=== PATIENT | male | born 2000 | race Caucasian/White ===

== ENCOUNTER 2025-05-08 18:14 | Emergency (ER) | payer MEDICAID, SELFPAY ==
[2025-05-08 18:38] VITALS: BP 149/86; PULSE 91; RESP 18; TEMP 36.6; O2SAT 98
--- NOTE | 2025-05-08 18:57 | XR_ITS ---
Examination: CT lumbar spine, without contrast. 2-D sagittal reconstructions. 2-D coronal reconstructions. 3-D reconstructions. Date and time of exam: May 08, 2025, 1922 hours INDICATION: Sudden onset lower back pain today CTDI: vol (mGy): 20.3 DLP: (mGycm): 681 Technique: Multiple 1.25 mm axial sections of the lumbar spine without intravenous contrast have been obtained. 2-D sagittal and coronal reconstructions have been obtained. 3-D reconstructions have been obtained. Low dose protocols were performed. One or more of the following dose reduction techniques were used; automated exposure control, adjustment of the mA and/or KV according to patient size, use of iterative reconstruction technique. Findings: Satisfactory line mid lumbar vertebral bodies on the lateral view. No lumbar fracture, no spondylolisthesis Mild to moderate disc narrowing L5-S1 Lumbar pedicles, laminae, transverse and posterior spinous processes intact L5-S1 3 mm central lumbar disc bulge contiguous with the left S1 nerve root L4-L5 2 mm central lumbar disc bulge L3-L4 4 mm central lumbar disc bulge L2-L3 no disc protrusion L1-L2 no disc protrusion IMPRESSION: No lumbar fracture L5-S1 3 mm central lumbar disc bulge contiguous with the left S1 nerve root L4-L5 2 mm central lumbar disc bulge L3-L4 4 mm central lumbar disc bulge As clinically warranted, MRI lumbar spine without contrast follow-up would best assess for acquired soft tissue spinal stenosis
[2025-05-08] MEDS: KETOROLAC INJ 60 MG/2 ML VIAL IM (19:29)
[2025-05-08] MEDS: HYDROcodone/APAP 5/325 TABLET 1 TAB PO (19:29)
[2025-05-08 19:41] LABS: Basophils # (Auto) 0.1 Thou/mm3 (0.0-0.2); Basophils % (Auto) 1 % (0-2.5); Eosinophils # (Auto) 0.4 Thou/mm3 (0.0-0.5); Eosinophils % (Auto) 5 % (0-10); Hematocrit 47.4 % (41.0-53.0); Hemoglobin 16.8 g/dL (13.5-16.0); Immature Granulocytes Auto 0.03 Thou/mm3 (0.00-0.00); Lymphocytes # (Auto) 1.9 Thou/mm3 (1.0-4.8); Lymphocytes % (Auto) 22 % (10-50); Mean Corpuscular HGB Conc 35.4 g/dl (31.0-37.0); Mean Corpuscular Hemoglobin 32.2 pg (25.0-35.0); Mean Corpuscular Volume 91 fL (80-100); Monocytes # (Auto) 0.9 Thou/mm3 (0.0-0.8); Monocytes % (Auto) 10 % (0-12); Neutrophils # (Auto) 5.5 Thou/mm3 (1.8-7.7); Neutrophils % (Auto) 63 % (37-80); Nucleated Red Blood Cell # 0.00 Thou/mm3 (0.00-0.00); Nucleated Red Blood Cell % 0 /100 WBC (0); Platelet Count 201 Thou/mm3 (140-440); RDW Standard Deviation 41.1 fL (35.1-43.9); Red Blood Count 5.21 Miln/mm3 (4.50-5.90); White Blood Count 8.7 Thou/mm3 (3.8-10.6)
[2025-05-08 20:03] LABS: Alanine Aminotransferase 30 U/L (10-49); Albumin, Serum 4.4 gm/dL (3.5-5.0); Albumin/Globulin Ratio 1.5 (1.2-2.2); Alkaline Phosphatase 92 U/L (46-116); Anion Gap 10 (7-16); Aspartate Amino Transferase 21 U/L (0-34); BUN/Creatinine Ratio 12 Ratio (12-20); Bilirubin,Total 1.0 mg/dL (0.3-1.2); Blood Urea Nitrogen 12 mg/dL (9-23); Calcium 9.7 mg/dL (8.3-10.6); Calcium (Corrected) 9.7 mg/dL (8.5-10.1); Carbon Dioxide 27.4 mMol/L (20.0-31.0); Chloride 104 mMol/L (98-107); Creatinine (Component) 1.0 mg/dL (0.6-1.3); Globulin 3.0 gm/dL (2.3-3.5); Glucose 98 mg/dL (74-106); Osmolality,Calculated 280 (275-295); Potassium 3.9 mMol/L (3.4-5.1); Sodium 141 mMol/L (136-145); Total Protein 7.4 gm/dL (5.7-8.2); eGFR > 60 See Note
[2025-05-08 20:10] LABS: Collection Type, Urine Clean Catch; Squamous Epithelial Cell,Urine 0 /hpf (0-5)
[2025-05-08 20:18] LABS: Bilirubin,Urine Negative (Negative); Blood,Urine Negative (Negative); Clarity,Urine Clear (Clear/Hazy); Color,Urine Yellow (Lt Yel-Yel); Glucose, Urine Negative (Negative); Ketones,Urine Negative (Negative); Leukocyte Esterase,Urine Negative (Negative); Nitrite,Urine Negative (Negative); PH,Urine 7.0 (5.0-7.0); Protein,Urine Trace (Neg - Trace); RBC,Urine < 1 /hpf (0-3); Specific Gravity,Urine 1.036 (1.001-1.035); Urobilinogen,Urine 2.0 mg/dL (0.0-1.0); WBC,Urine 1 /hpf (0-5)
--- NOTE | 2025-05-08 21:23 | PD.EDBACK ---
ED Back Injury Pain RME/HPI General Chief Complaint: Back Pain/Injury Stated Complaint: LOWER BACK PAIN 7/10, DIZZY SPELLS Time Seen by Provider: 05/08/25 18:45 Arrival date/time: 05/08/25 18:14 This is a case of 25-year-old male with no medical history came in in the emergency room due to lower back pain history of present illness started this morning when the patient accidentally twisted his lower back after giving her son a insulin and started to have lower back pain initially patient started to have dizziness but resolved denies any numbness weakness tingling sensation denies any headache blurring of vision denies any incontinence to urine or stool Limitations: no limitations Related Data Previous Rx's ?Medication ?Instructions ?Recorded ondansetron HCl 4 mg tablet 4 mg PO QID PRN nausea and 07/09/19 (Zofran) vomiting #20 tabs amoxicillin 875 mg-potassium 1 tab PO BID #14 tabs 10/01/22 clavulanate 125 mg tablet baclofen 10 mg tablet 10 mg PO QDAY PRN muscle spasm #15 05/08/25 tabs hydrocodone 5 mg-acetaminophen 325 1 tab PO BID PRN pain #20 tabs 05/08/25 mg tablet Allergies Allergy/AdvReac Type Severity Reaction Status Date / Time No Known Allergies Allergy Verified 05/08/25 18:17 Review of Systems Review of Systems Systems Reviewed: All systems reviewed, normal except as documented Past Medical History Past Medical History NEUROLOGIC: Negative Neurological Disorders CARDIAC: Negative Cardiac Disorders or Congestive Heart Failure RESPIRATORY: Positive Asthma; Negative Chronic Obstructive Pulmonary Disease (COPD) GASTROINTESTINAL: Positive Gastrointestinal Disorders (ABD pain) GENITOURINARY: Negative Renal Disease MUSCULOSKELETAL: Negative Musculoskeletal Disorders ENDOCRINE: Negative Endocrine Disorders, Diabetes Mellitus Type 1 or Diabetes Mellitus Type 2 HEMATOLOGIC: Negative Blood Disorders or Sickle Cell Disease Social History SMOKING STATUS: Current every day smoker SUBSTANCE USE: does not use ED Exam General Limitations: Present no limitations General appearance: Present alert, in no apparent distress and other (Patient is awake alert oriented not in distress nontoxic looking well-hydrated well nourisshed) Head Head exam: Present atraumatic, normocephalic and normal inspection Eye Eye exam: Present normal appearance, PERRL and EOMI ENT ENT exam: Present normal exam, normal oropharynx and mucous membranes moist Neck Neck exam: Present normal inspection, full ROM and trachea midline; Absent tenderness, meningismus, lymphadenopathy or thyromegaly Chest Chest inspection: Present normal inspection and symmetric chest wall rise Respiratory Respiratory exam: Present normal lung sounds bilaterally; Absent respiratory distress, wheezes, stridor or prolonged expiratory phase Cardiovascular Cardiovascular exam: Present regular rate, normal rhythm and normal heart sounds; Absent bradycardia, tachycardia, irregular rhythm, systolic murmur or diastolic murmur Abdominal Exam Abdominal exam: Present soft and normal bowel sounds; Absent distention, tenderness, guarding, rebound, rigidity, diminished bowel sounds, hyperactive bowel sounds, hypoactive bowel sounds or organomegaly Extremities Exam Extremities exam: Present normal inspection and full ROM Back Exam Back exam: Present normal inspection, full ROM, tenderness (L1 L5 mild to moderate tenderness no crepitation no deformity no redness no swelling no CVA tenderness mild muscle spasm no paraspinal no paravertebral tenderness) and muscle spasm; Absent CVA tenderness (R), CVA tenderness (L), paraspinal tenderness, vertebral tenderness, rashes, sciatic notch tenderness (R), sciatic notch tenderness (L), straight leg raise (R) or straight leg raise (L) Neurological Exam Neurological exam: Present alert, oriented X3, CN II-XII intact, normal gait, reflexes normal and other (Awake alert oriented x 4 no focal deficit GCS 15/15 steady gait memory intact no slurring speech no facial droop motor or sensory reflex in all extremities were normal negative Babinski); Absent motor sensory deficit Psychiatric Psychiatric exam: Present normal affect and normal mood Skin Skin exam: Present warm, dry, intact, normal color and other (Excellent skin turgor) Course Quality Measures none Orders Category Date Time Status CT lumbar spine wo con Stat Exams 05/08/25 18:57 Completed CBC Stat Lab 05/08/25 19:27 Completed Comprehensive Metabolic Panel Stat Lab 05/08/25 19:27 Completed Urinalysis Stat Lab 05/08/25 19:45 Completed HYDROcodone*/APAP 5/325 [[place] 5/325] Med 05/08/25 19:15 Discontinued 1 tab PO X1 ONE Ketorolac Inj [Toradol Inj] Med 05/08/25 19:15 Discontinued 60 mg IM X1 ONE dexAMETHasone INJ [Decadron Inj] Med 05/08/25 21:23 Once 10 mg IM X1 ONE Vital Signs Vital signs: Vital Signs Temperature 97.8 F 05/08/25 18:38 Pulse Rate 91 05/08/25 18:38 Respiratory Rate 18 05/08/25 18:38 Blood Pressure 149/86 H 05/08/25 18:38 Pulse Oximetry (%) 98 05/08/25 18:38 Oxygen Delivery Method Room Air 05/08/25 18:38 None Back Pain / Injury MDM Narrative MDM Narrative:: This is a case of 25-year-old male with no medical history came in in the emergency room due to lower back pain history of present illness started this morning when the patient accidentally twisted his lower back after giving her son a insulin and started to have lower back pain initially patient started to have dizziness but resolved denies any numbness weakness tingling sensation denies any headache blurring of vision denies any incontinence to urine or stool physical examination patient is awake alert oriented not in distress nontoxic looking vital signs stable BP stable not tachycardic not tachypneic afebrile and nonhypoxic neurological exam is normal awake alert oriented x 4 no focal deficit GCS 15 of 15 steady gait memory intact no slurring of speech no facial droop motor or sensory reflex in all extremities were normal negative Babinski patient noted to have moderate tenderness in the lumbar area L1 L5 but no crepitation no deformity no redness no swelling no paraspinal no paravertebral tenderness leg raise exam is negative mild muscle spasm no CVA tenderness steady gait no swelling blood test showed no leukocytosis no anemia kidney liver function is normal no electrolyte imbalance urinalysis is normal patient CT scan showed a central lumbar disc at this point there is no signs and symptoms of cauda equina after giving Toradol [place] and dexamethasone patient condition improved and resolved patient will follow-up with PCP in 2 days for reevaluation and to be referred to neurosurgeon for possible MRI to rule out herniated disc and pain management doctor for pain control for any worsening symptoms or new emergent concern return precaution in the ER is advised Patient was discharged with comfortable condition walking with stable gait. Patient verbalized no further complains explained diagnosis and answered patient question. Patient is comfortable with the proposed management plan including the need to follow up with his/her primary care physician and any specialist if applicable Discussed patient for any urgent condition or worsening sx, He/She needed to go to emergency room immediately or call 911. Patient acknowledge the responsibility to follow up as instructed and to monitor her/his symptoms. For any persistence of the symptoms for more than 3-5 days return precaution advised. Discussed the result of the test and was given printed discharge instruction Patient data External records reviewed:: [facility] previous records Clinical information provided by:: patient Social determinants that could affect healthcare access:: none Patient has the following chronic illnesses:: None How is presenting disease/condition affected by chronic disease/condition?: no chronic disease Evaluation data The following diagnostics were reviewed and interpreted by me:: lab results and radiology exam(s) Lab and/or radiology exams considered but not ordered:: Reviewed Interpretation Summary: Reviewed Medications / Prescriptions Medications or Prescriptions considered but not ordered:: Given Medication administrations:: Medication Administration History Discontinued Medications Hydrocodone Bitart/Acetaminophen (Hydrocodone/Apap 5/325 Tablet) 1 tab PO X1 ONE Stop: 05/08/25 19:16 Last Admin: 05/08/25 19:29 Dose: 1 tab Documented By: MARIA LUZ Ketorolac Tromethamine (Ketorolac Inj 60 Mg/2 Ml Vial) 60 mg IM X1 ONE Stop: 05/08/25 19:16 Last Admin: 05/08/25 19:29 Dose: 60 mg Documented By: MARIA LUZ Given Consultations Consultation(s) initiated? (list below): No Diagnosis Differential diagnosis back pain/injury: lumbar radiculopathy, sciatica and other (DDD bulging lumbar disc muscles) Most likely diagnosis given after review of the tests above:: Lumbar bulging disc Admission Indicated Admission indicated?: not indicated Explain why admission is indicated or not indicated:: Not indicate Admission Request Was there a request for admission?: No Admission Attestation Admission request attestation: Not indicated Disposition Plan Disposition Plan: Discharge Discharge Attestation Discharge Attestation: The patient and all family members were given an opportunity to ask questions and understood the discharge instructions. Discharge instructions specifically effects, indications for sooner follow up or return to the emergency department, and the expected course of current diagnosis. Patient condition: Stable Discharge Plan Plan Patient Disposition: HOME (Self Care) Patient condition on transfer: Stable Prescriptions/Referrals Prescriptions/Med Rec: New hydrocodone-acetaminophen 5-325 mg tablet 1 tab PO BID MDD max 4 tabs per day PRN (Reason: pain) Qty: 20 0RF baclofen 10 mg tablet 10 mg PO QDAY PRN (Reason: muscle spasm) Qty: 15 0RF Rx Instructions: as needed for muscle spasm No Action ondansetron HCl [Zofran] 4 mg tablet 4 mg PO QID PRN (Reason: nausea and vomiting) Qty: 20 0RF amoxicillin-pot clavulanate 875-125 mg tablet 1 tab PO BID Qty: 14 0RF Referrals: No Primary/Family,Physician [Primary Care Provider] - In 1 week Problem List Clinical Impression: Bulging lumbar disc, Back muscle spasm Patient/Caregiver Discharge Instructions Education Materials: Common Spine and Disk Problems, ED Back Spasm, No Trauma, ED Degenerative Disk Disease Additional Instructions: Follow-up with your primary care physician in 2 days for reevaluation and to be referred to neurosurgeon for further evaluation and treatment of lumbar bulging disc and pain management doctor for pain control recurrence persistent worsening symptoms or any emergent concerns such as numbness weakness tingling sensation incontinence to urine or stool return to the emergency room immediately or call 911 take your medication as directed do not take [place] and baclofen at the same time ice pack and warm compress as needed for pain no lifting no pushing no pulling advised Print Language: Citizen Of [place] Stand Alone Forms: Charis Award Info., Patient Portal Info Letter PA/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 Sagastume
== END 2025-05-08 21:39 | disposition home or self-care (01) ==
PROVIDERS: Nurse Practitioner Family; Emergency Provider Emergency Medicine
DX: M51.360 Other intervertebral disc degeneration, lumbar region with discogenic back pain only (principal); M62.830 Muscle spasm of back
CPT/HCPCS: 36415; 72131; 80053; 81001; 85025; 96372; 99283; J1100; J1885; A9270